=== PATIENT | male | born 1940 | race Caucasian/White ===

== ENCOUNTER 2022-08-15 10:18 | Emergency (ER) | payer MEDICARE ==
[~2022-08-15] VITALS: Ht 177.8 cm; Wt 97.0 kg
[2022-08-15 11:31] VITALS: BP 180/76
[2022-08-15 12:00] VITALS: BP 170/78
[2022-08-15 12:22] LABS: BASO% 0.6 % (0-3); EOS% 2.6 % (0-8); HEMATOCRIT 39.6 % (39.0-50.0); HEMOGLOBIN 12.7 g/dl (14.0-18.0); MEAN CELL VOLUME 92.3 fL CALC (80.0-100.0); MEAN CORPUSCULAR HGB 29.6 pG CALC (26.0-32.0); MEAN CORPUSCULAR HGB CONC 32.1 g/dL CAL (32.0-36.0); MONO% 11.1 % (2-13); NEUT# 2.07 thou/uL (1.82-7.42); NEUT% 58.7 % (42-76); RED BLOOD COUNT 4.29 mill/uL (4.70-6.10); RED CELL DISTRI WIDTH 13.7 % (11.5-15.5)
[2022-08-15 12:31] VITALS: BP 158/70
[2022-08-15 12:40] LABS: INTERNATIONAL NORMALIZED RATIO 1.1 RATIO (0.7-1.3); PROTHROMBIN TIME 10.7 SECONDS (9.0-12.5)
[2022-08-15 12:46] LABS: ALBUMIN 4.5 g/dL (3.2-5.0); ALKALINE PHOSPHATASE 286 u/l (38-126); ANION GAP 13 (6-22 (CALC)); BILIRUBIN, TOTAL 0.4 mg/dL (0.2-1.3); BUN 14 mg/dL (8-23); BUN/CREATININE RATIO 17 (12-20 (CALC)); CARBON DIOXIDE 30 mmol/l (22-30); CHLORIDE 101 mmol/l (95-108); CREATININE 0.8 mg/dL (0.7-1.3); GFR FOR AFR.AMER. > 60 ML/MIN (>=60 (CALC)); GFR OTHER RACES > 60 ML/MIN (>=60 (CALC)); POTASSIUM 4.5 mmol/l (3.5-5.1); SGOT/AST 42 u/l (19-48); SODIUM 139 mmol/l (137-146); TOTAL PROTEIN 7.2 g/dL (6.3-8.2)
[2022-08-15] MEDS ORDERED: PREDNISONE20 MG PO (13:05)
[2022-08-15 13:31] VITALS: BP 158/70
== END 2022-08-15 13:45 | disposition home or self-care (01) ==
LOC: ED 10:18
PROVIDERS: Nurse Practitioner
DX: R21 Rash and other nonspecific skin eruption (principal); R23.3 Spontaneous ecchymoses; L80 Vitiligo; E78.5 Hyperlipidemia, unspecified